=== PATIENT | male | born 1970 | race Caucasian/White ===

== ENCOUNTER → 2018-01-25 | Outpatient (CLI) | payer OTHER ==
[~2018-01-25] MED LIST: ACETAMINOPHEN325 M1 PO; ADULT LOW DOSE81 MG PO; AGGRENOX CAPSU1 EACH PO; ANAPROX DS550 MG PO; ASPIRIN325; BACTRIM DS TAB1 EACH PO; BENADRYL25 MG PO; BYSTOLIC 5 MG5 M1 PO; CALAN PO; CIPROFLOXACIN500 M1 PO; CLONIDINE HCL0.2 M2 GT; COLACE100 MG; ENDOCET 10-3251 EACH; EXCEDRIN SINUS1 EAC2 PO; FISH OIL 1,0001 EAC5 PO; HYDROCHLOROTH12.5 MG PO; HYDROCODON-ACE1 EAC7 PO; HYDROCODONE-AP1 EAC6 PO; KENALOG60 GM TP; LEVAQUIN 500 M500 MG PO; LEVSIN0.125 MG; LIVALO2 MG PO; LOPRESSOR 50 MG50 M1 PO; MEDROLDOSEPACK PO; MIRALAX17 GM; MULTIVITAMINS PO; NEXIUM20 MG; NORCO 5-325 TA1 EACH PO; NORVASC 2.5 MG2.5 MG PO; OXYCODONE-APAP1 EAC4 PO; OXYCONTIN10 M1 PO; PENICILLIN VK250 MG PO; PERCOCET 5-3251 EACH PO; PHENERGAN 25 MG25 M1 PO; PREDNISONE 20 M20 MG PO; PRILOSEC40 MG; SIMVASTATIN40 MG PO; TURMERIC PO; TUSSIONEX PENN473 ML PO; VALIUM2 MG PO; VICODIN 5-5001 EACH PO; VISTARIL 25 MG25 M1 PO; XANAX 1 MG TABLE1 MG PO; ZOFRAN ODT4 MG PO; ZOFRAN ODT4 MG SUBLING
== END ==
LOC: M.ULTRA 14:42
DX: M79.605 Pain in left leg (principal); G57.12 Meralgia paresthetica, left lower limb; M79.89 Other specified soft tissue disorders; R20.0 Anesthesia of skin